=== PATIENT | female | born 1985 | race Two or more races ===

== ENCOUNTER → 2024-06-30 | Outpatient (CLI) | payer OTHER, SELFPAY ==
[2024-06-30 09:31] LABS: Basophils # (Auto) 0.1 Thou/mm3 (0.0-0.2); Basophils % (Auto) 1 % (0-2.5); Eosinophils # (Auto) 0.1 Thou/mm3 (0.0-0.5); Eosinophils % (Auto) 2 % (0-10); Hematocrit 42.9 % (36.0-46.0); Immature Granulocytes % (Auto) 0 % (0-0); Immature Granulocytes Auto 0.01 Thou/mm3 (0.00-0.00); Lymphocytes # (Auto) 2.5 Thou/mm3 (1.0-4.8); Lymphocytes % (Auto) 40 % (10-50); Mean Corpuscular Hemoglobin 29.8 pg (25.0-35.0); Mean Corpuscular Volume 85 fL (80-100); Monocytes # (Auto) 0.4 Thou/mm3 (0.0-0.8); Monocytes % (Auto) 6 % (0-12); Neutrophils # (Auto) 3.2 Thou/mm3 (1.8-7.7); Neutrophils % (Auto) 51 % (37-80); Nucleated Red Blood Cell % 0 /100 WBC (0); Platelet Count 272 Thou/mm3 (140-440); RDW Standard Deviation 36.6 fL (36.4-46.3); Red Blood Count 5.03 Miln/mm3 (4.00-5.20); White Blood Count 6.2 Thou/mm3 (3.6-11.0)
[2024-06-30 09:44] LABS: Glucose Estimated Average 203 mg/dL (80-131); Hemoglobin A1C 8.7 % Hgb (4.8-6.0)
[2024-06-30 09:50] LABS: Vitamin B12 707 pg/mL (211-911); Vitamin D 25 Hydroxy Total 22.2 ng/mL (7.3-40.2)
[2024-06-30 09:54] LABS: Alanine Aminotransferase 84 U/L (10-49); Albumin, Serum 4.7 gm/dL (3.5-5.0); Anion Gap 9 (7-16); Aspartate Amino Transferase 46 U/L (0-34); BUN/Creatinine Ratio 14 Ratio (12-20); Bilirubin,Total 1.2 mg/dL (0.3-1.2); Blood Urea Nitrogen 13 mg/dL (9-23); Calcium 9.9 mg/dL (8.3-10.6); Calcium (Corrected) 9.9 mg/dL (8.5-10.1); Chloride 101 mMol/L (98-107); Cholesterol 227 mg/dL (132-200); Creatinine (Component) 0.9 mg/dL (0.6-1.3); Globulin 2.3 gm/dL (2.3-3.5); Glucose 273 mg/dL (74-106); HDL Cholesterol 44 mg/dL (40-60); Osmolality,Calculated 283 (275-295); Potassium 5.2 mMol/L (3.4-5.1); Sodium 137 mMol/L (136-145); Triglycerides 186 mg/dL (30-150); eGFR > 60 See Note
[2024-06-30 09:55] LABS: Cardiac Risk Estimate 5.2 RATIO (3.7-5.6); Free T4 (Free Thyroxine) 1.15 ng/dL (0.89-1.76); LDL Cholesterol,Calculated 146 mg/dL (0-130); Thyroid Stimulating Hormone 1.03 uIU/mL (0.55-4.78)
[2024-06-30 10:05] LABS: Alkaline Phosphatase 86 U/L (46-116)
== END | disposition home or self-care (01) ==
LOC: COPL 08:00
PROVIDERS: PCP Internal Medicine; Referring Provider Internal Medicine; Visit Provider Internal Medicine
DX: Z00.00 Encounter for general adult medical examination without abnormal findings (principal); E55.9 Vitamin D deficiency, unspecified
CPT/HCPCS: 36415; 80053; 80061; 82306; 82607; 83036; 84439; 84443; 85025

== ENCOUNTER → 2024-10-14 | Outpatient (CLI) | payer OTHER, SELFPAY ==
[2024-10-14 10:04] LABS: Glucose Estimated Average 148 mg/dL (80-131); Hemoglobin A1C 6.8 % Hgb (4.8-6.0)
[2024-10-14 10:11] LABS: Alanine Aminotransferase 67 U/L (10-49); Albumin, Serum 4.7 gm/dL (3.5-5.0); Alkaline Phosphatase 66 U/L (46-116); Bilirubin,Direct 0.2 mg/dL (0.0-0.3); Bilirubin,Total 0.9 mg/dL (0.3-1.2)
[2024-10-14 10:51] LABS: Hepatitis A Antibody IgM Non Reactive (Non React); Hepatitis B Core Antibody IgM Non Reactive (Non React); Hepatitis B Surface Antigen Non Reactive (Non React); Hepatitis C Antibody Non Reactive (Non React)
== END | disposition home or self-care (01) ==
LOC: COPL 08:26
PROVIDERS: PCP Internal Medicine; Referring Provider Internal Medicine; Visit Provider Internal Medicine
DX: E11.9 Type 2 diabetes mellitus without complications (principal)
CPT/HCPCS: 36415; 80074; 80076; 83036

== ENCOUNTER → 2025-01-20 | Outpatient (CLI) | payer OTHER, SELFPAY ==
[2025-01-20 08:44] LABS: Glucose Estimated Average 123 mg/dL (80-131); Hemoglobin A1C 5.9 % Hgb (4.8-6.0)
[2025-01-20 08:51] LABS: Creatinine MALB Rnd Ur 131 mg/dL (30-125); Microalbumin Creat Ratio 9 mg/gCrea (<30); Microalbumin, Random Urine 12 mg/L (0-300)
[2025-01-20 09:10] LABS: Alanine Aminotransferase 47 U/L (10-49); Albumin, Serum 4.7 gm/dL (3.5-5.0); Alkaline Phosphatase 72 U/L (46-116); Aspartate Amino Transferase 24 U/L (0-34); Bilirubin,Direct 0.3 mg/dL (0.0-0.3); Bilirubin,Total 1.5 mg/dL (0.3-1.2); Cardiac Risk Estimate 5.0 RATIO (3.7-5.6); Cholesterol 191 mg/dL (132-200); HDL Cholesterol 38 mg/dL (40-60); LDL Cholesterol,Calculated 123 mg/dL (0-130); Total Protein 7.1 gm/dL (5.7-8.2); Triglycerides 149 mg/dL (30-150)
== END | disposition home or self-care (01) ==
LOC: COPL 07:40
PROVIDERS: PCP Internal Medicine; Referring Provider Internal Medicine; Visit Provider Internal Medicine
DX: E11.9 Type 2 diabetes mellitus without complications (principal)
CPT/HCPCS: 36415; 80061; 80076; 82043; 82570; 83036

== ENCOUNTER → 2025-04-12 | Outpatient (CLI) | payer BC, SELFPAY ==
[2025-04-12 10:35] LABS: Glucose Estimated Average 126 mg/dL (80-131); Hemoglobin A1C 6.0 % Hgb (4.8-6.0)
[2025-04-12 10:49] LABS: Albumin, Serum 4.5 gm/dL (3.5-5.0); Anion Gap 8 (7-16); BUN/Creatinine Ratio 14 Ratio (12-20); Blood Urea Nitrogen 11 mg/dL (9-23); Calcium 9.3 mg/dL (8.3-10.6); Calcium (Corrected) 9.3 mg/dL (8.5-10.1); Carbon Dioxide 27.9 mMol/L (20.0-31.0); Chloride 104 mMol/L (98-107); Creatinine (Component) 0.8 mg/dL (0.6-1.3); Glucose 101 mg/dL (74-106); Osmolality,Calculated 278 (275-295); Phosphorous 4.6 mg/dL (2.4-5.1); Potassium 4.3 mMol/L (3.4-5.1); Sodium 140 mMol/L (136-145); eGFR > 60 See Note
== END | disposition home or self-care (01) ==
PROVIDERS: PCP Internal Medicine; Referring Provider Internal Medicine; Visit Provider Internal Medicine
DX: E11.9 Type 2 diabetes mellitus without complications (principal)
CPT/HCPCS: 36415; 80069; 83036